=== PATIENT | male | born 1960 | race Caucasian/White ===

== ENCOUNTER 2017-01-01 20:25 | Emergency (ER) | payer OTHER ==
[~2017-01-01] VITALS: Ht 170.2 cm; Wt 73.5 kg
[2017-01-01 20:33] VITALS: Ht 170.2 cm; Wt 73.5 kg
[2017-01-01 21:26] LABS: ADD SCAN DIFF NO
[2017-01-01 21:27] LABS: BASOPHILS % 0.2 % (0.0-2.0); EOSINOPHILS # 0.5 10^3/ul (0.0-0.5); EOSINOPHILS % 5.1 % (0.0-7.0); HEMATOCRIT 40.1 % (42.0-52.0); HEMOGLOBIN 13.2 g/dl (14.0-18.0); LYMPHOCYTES # 3.4 10^3/ul (0.8-2.9); LYMPHOCYTES % 32.4 % (15.0-51.0); MEAN CORPUSCULAR HEMOGLOBIN 28.9 pg (29.0-33.0); MEAN CORPUSCULAR HGB CONC 32.9 g/dl (32.0-37.0); MEAN CORPUSCULAR VOLUME 87.7 fl (82.0-101.0); MEAN PLATELET VOLUME 9.5 fl (7.4-10.4); MONOCYTE # 0.8 10^3/ul (0.3-0.9); MONOCYTES % 7.6 % (0.0-11.0); NEUTROPHIL # 5.6 10^3/ul (1.6-7.5); NEUTROPHILS % 54.1 % (39.0-77.0); PLATELET COUNT 261 10^3/UL (140-415); RED BLOOD COUNT 4.57 10^6/ul (4.70-6.10); RED CELL DISTRIBUTION WIDTH 12.6 % (11.5-14.5); WHITE BLOOD COUNT 10.3 10^3/ul (4.8-10.8)
--- NOTE | 2017-01-01 21:54 | RADRPT ---
PROCEDURE: XR Lumbar Spine. CLINICAL INDICATION: Low back pain. TECHNIQUE: Portable supine AP and lateral views of the lumbar spine were obtained. COMPARISON: None. FINDINGS: Transitional anatomy at the lumbosacral junction is present. Hypoplastic ribs are seen at T12 [place] alization is within normal limits. Vertebral bodies are normal in height. No fracture is identifie d. Lumbar lordosis is preserved. No vertebral subluxation is seen. Mild disk narrowing is present at L3-4 and L4-5. Moderate to severe anterior spondylosis is present with left lateral spondylosis greatest at the L2-3 and right lateral spondylosis at L3-4. Paraspinal contours are unremarkable. Facet degeneration is present at L4-5 and L5-S1. RPTAT:HJJR IMPRESSION: 1. Multilevel moderate spondylosis of the lumbar spine asymmetric to the left at L2-3 and to the rig ht at L3-4 with disk space narrowing at L3-4 and L4-5. 2. Transitional lumbosacral anatomy. 3. Facet arthropathy greatest at L4-5 and L5-S1. Physician Eddie Date Time Electronically viewed and signed by Physician Eddie on 01/01/2017 21:53 /
--- NOTE | 2017-01-01 21:55 | RADRPT ---
PROCEDURE: XR Hand. CLINICAL INDICATION: Left hand pain TECHNIQUE: PA, oblique and lateral views of the left hand were obtained. COMPARISON: None available. FINDINGS: Mineralization is within normal limits. No fracture or osseous lesion is identified. Joint spaces are preserved. Soft tissue swelling is most pronounced involving the middle finger. No radiopaque f oreign body is present. RPTAT:HJJR IMPRESSION: Middle finger soft tissue swelling without evidence of acute osseous abnormality involving the left hand. Physician Eddie Date Time Electronically viewed and signed by Physician Eddie on 01/01/2017 21:54 /
[2017-01-01 21:56] LABS: ALBUMIN 4.9 g/dl (3.3-4.9); ALBUMIN/GLOBULIN RATIO 1.28; BILIRUBIN,INDIRECT 0.2 mg/dl (0-1.1); BILIRUBIN,TOTAL 0.2 mg/dl (0.2-1.3); CREATININE 0.98 mg/dl (0.61-1.24); TOTAL PROTEIN 8.7 g/dl (6.1-8.1); URIC ACID 10.9 mg/dl (3.1-7.9)
[2017-01-01 21:59] LABS: ADD UMIC YES; URINE BILIRUBIN (Dip) NEGATIVE (NEGATIVE); URINE BLOOD (Dip) TRACE (NEGATIVE); URINE COLOR LT. YELLOW (YELLOW); URINE GLUCOSE (Dip) NEGATIVE (NEGATIVE); URINE KETONES (Dip) NEGATIVE (NEGATIVE); URINE LEUKOCYTE ESTERASE (Dip) NEGATIVE (NEGATIVE); URINE NITRITE (Dip) NEGATIVE (NEGATIVE); URINE TOTAL PROTEIN (Dip) NEGATIVE (NEGATIVE); URINE UROBILINOGEN (Dip) 0.2 E.U./dL (0.1-1.0)
[2017-01-01 22:10] LABS: URINE RBCS 0-2 /HPF (0)
[2017-01-01] MEDS ORDERED: PRED20TA PO (23:13)
[2017-01-01 23:26] VITALS: BP 169/84; PULSE 66; RESP 20; TEMP 98.6
--- NOTE | 2017-01-01 23:27 | ERD ---
ER Documentation Chief Complaint Date/Time DATE: 01/01/17 TIME: 23:19 Chief Complaint back pain x 2 days; no trauma HPI This is a 56-year-old male presents to the ER with his family complaining of left hand swelling and pain that started on December 15. Patient has a past medical history of gout and believes is a gouty attack. He is currently taking Colchicine and Celebrex for his gout. Patient denies any fevers or chills. He denies any redness to the hand. He denies any trauma. Patient denies any numbness or tingling of his hand. Patient is also complaining of lower back pain. Lower back pain started 2 days ago after he lifted something heavy. He denies any urinary bowel incontinence. He denies any hematuria. Patient denies any saddle like anesthesia. He denies any leg numbness/ tingling, redness or swelling. ROS 12 point review of systems was done, all negative except per HPI. Medications Home Meds Active Scripts Prednisone* (Prednisone*) 20 Mg Tab, 40 MG PO DAILY for 5 Days, TAB Prov:AILEEN JOSE 01/01/17 Allergies Allergies: Coded Allergies: No Known Allergy (Unverified , 01/01/17) PMhx/Soc History of Surgery: No Anesthesia Reaction: No Hx Neurological Disorder: No Hx Respiratory Disorders: No Hx Cardiac Disorders: No Hx Psychiatric Problems: No Hx Miscellaneous Medical Probl: Yes (GOUT) Hx Alcohol Use: No Hx Substance Use: No Hx Tobacco Use: No Smoking Status: Never smoker Physical Exam Vitals Vital Signs Date Time Temp Pulse Resp B/P Pulse Ox O2 Delivery O2 Flow Rate FiO2 01/01/17 20:33 98.8 69 18 155/83 98 Physical Exam GENERAL: The patient is well developed and appropriate for usual state of health , in no apparent distress. NECK: C-spine is soft and supple. There is no cervical lymphadenopathy. CHEST: Clear to auscultation bilaterally. There are no rales, wheezes or rhonchi. HEART: Regular rate and rhythm. No murmurs, clicks, rubs or gallops. ABDOMEN: Soft, nontender and nondistended. BACK: No midline or flank tenderness. Tender to palpation from L3-L5. Tense paraspinal muscles. Negative leg raise test. No step- offs. EXTREMITIES: Left hand: There is swelling to the third digit, tender to palpation. Patient however has full range of motion of all his digits with no erythema. She denies intact to the radial ulnar nerves. NEURO: Alert and oriented. SKIN: The skin is warm and dry. Result Diagram: 01/01/17210401/01/172104 Results 24 hrs Laboratory Tests Test 01/01/17 21:05 01/01/17 21:30 White Blood Count 10.310^3/ul Red Blood Count 4.5710^6/ul Hemoglobin 13.2g/dl Hematocrit 40.1% Mean Corpuscular Volume 87.7fl Mean Corpuscular Hemoglobin 28.9pg Mean Corpuscular Hemoglobin Concent 32.9g/dl Red Cell Distribution Width 12.6% Platelet Count 76536^3/UL Mean Platelet Volume 9.5fl Neutrophils % 54.1% Lymphocytes % 32.4% Monocytes % 7.6% Eosinophils % 5.1% Basophils % 0.2% Nucleated Red Blood Cells % 0.0/100WBC Neutrophils # 5.610^3/ul Lymphocytes # 3.410^3/ul Monocytes # 0.810^3/ul Eosinophils # 0.510^3/ul Basophils # 0.010^3/ul Nucleated Red Blood Cells # 0.010^3/ul Erythrocyte Sedimentation Rate 30mm/Hr Sodium Level 140mmol/L Potassium Level 4.0mmol/L Chloride Level 107mmol/L Carbon Dioxide Level 23mmol/L Anion Gap 14 Blood Urea Nitrogen 17mg/dl Creatinine 0.98mg/dl Glucose Level 106mg/dl Uric Acid 10.9mg/dl Calcium Level 10.0mg/dl Total Bilirubin 0.2mg/dl Direct Bilirubin 0.00mg/dl Indirect Bilirubin 0.2mg/dl Aspartate Amino Transf (AST/SGOT) 25IU/L Alanine Aminotransferase (ALT/SGPT) 36IU/L Alkaline Phosphatase 72IU/L C-Reactive Protein Pending Total Protein 8.7g/dl Albumin 4.9g/dl Globulin 3.80g/dl Albumin/Globulin Ratio 1.28 Urine Color LT. YELLOW Urine Clarity CLEAR Urine pH 5.0 Urine Specific [place] 1.015 Urine Ketones NEGATIVE Urine Nitrite NEGATIVE Urine Bilirubin NEGATIVE Urine Urobilinogen 0.2 E.U./dL Urine Leukocyte Esterase NEGATIVE Urine Microscopic RBC 0-2/HPF Urine Microscopic WBC NONE SEEN/HPF Urine Hemoglobin TRACE Urine Glucose NEGATIVE% Urine Total Protein NEGATIVE Procedures/MDM Differential Diagnosis includes but is not limited to back strain, vertebral fracture, epidural abscess, cauda equina, herniated disc, AAA rupture, kidney stones, UTI, pyelonephritis. This is a 56-year-old male presents to the ER with back pain. This is likely a back strain. Patient did have something heavy 2 days ago. Patient is neurovascularly intact and has full range of motion of bilateral lower extremities. His patient for epidural abscess or cauda equina is low. Patient afebrile and extremely well appearing. In regards to patient's left and, his pain and swelling is likely due to gout. Patient's uric acid is elevated he has a long-standing history of gout. Patient is currently on the correct medication for gout. I instructed patient to continue with his medication added a short course of steroids. Suspicion for septic joint, septic arthritis, osteomyelitis is low. Patient needs to follow-up with his primary care doctor within 1-2 days return to ER sooner symptoms worsen. My medical decision-making pressure with patient he understands and agrees with plan. Departure Diagnosis: Primary Impression: Back pain Additional Impression: Gout Condition: Stable Patient Instructions: Treating Gout Attacks, Back Pain (Acute Or Chronic) Additional Instructions: Call your primary care doctor TOMORROW for an appointment during the next 1-2 days.See the doctor sooner or return here if your condition worsens before your appointment time. AILEEN JOSE Jan 01, 2017 23:27
[2017-01-02 02:02] LABS: C-REACTIVE PROTEIN 3.1 mg/dl (0.0-0.9)
== END 2017-01-01 23:27 | disposition home or self-care (01) ==
LOC: FTE 20:25
DX: M54.5 Low back pain (principal); M10.9 Gout, unspecified
CPT/HCPCS: 36415; 72100; 73130; 80053; 81001; 84560; 85025; 85651; 86140; Z7502

== ENCOUNTER 2017-12-16 13:16 | Emergency (ER) | END 2017-12-16 13:37 | disposition home or self-care (01) ==

== ENCOUNTER 2018-10-20 10:43 | Emergency (ER) | payer OTHER ==
[~2018-10-20] VITALS: Ht 172.7 cm; Wt 72.0 kg
[~2018-10-20 10:43] MED LIST: BEN25 PO; HDRP454O TOP; PRED20TA PO; TRIA15CR55 TOP
[2018-10-20 10:48] VITALS: Ht 172.7 cm; Wt 72.0 kg
[2018-10-20] MEDS ORDERED: KETOROLAC 30 MG INJ IM STA (11:58)
[2018-10-20] MEDS ORDERED: HYDROCODONE/APAP (5/325) TAB PO ONE (12:00)
[2018-10-20] MEDS ORDERED: TRAM50TA2 PO (12:37)
[2018-10-20] MEDS ORDERED: IBUP800T48 PO (12:37)
--- NOTE | 2018-10-20 12:41 | ERD ---
ER Documentation Chief Complaint Chief Complaint pt is bib family with c/o unable to raise left shoulder x 1 wk HPI 58-year-old male with history of gout is complaining of left shoulder pain. He has limited range of motion in shoulder. No injury or trauma. No fever. No numbness or tingling. No chest pain palpitations or shortness of breath. ROS All systems reviewed and are negative except as per history of present illness. Medications Home Meds Active Scripts Tramadol HCl (Tramadol HCl) 50 Mg Tablet, 50 MG PO Q4 PRN for PAIN, #20 TAB Prov:JW CLEMENS PA-C 10/20/18 Ibuprofen* (Motrin*) 800 Mg Tab, 800 MG PO Q6, #30 TAB Prov:JW CLEMENS PA-C 10/20/18 Hydrophilic Base* (Aquaphor*) 454 Gm-Topical Oint, 1 APPLIC TOP BID, #1 JAR Prov:CAMI PAINTER PA-C 12/16/17 Triamcinolone Acetonide (Triamcinolone Acetonide) 0.1% - 15 Gm Cream.gm., 1 APPLIC TOP BID, #1 TUB Prov:CAMI PAINTER PA-C 12/16/17 Diphenhydramine Hcl* (Benadryl*) 25 Mg Cap, 25 MG PO BID, #30 CAP Prov:CAMI PAINTER PA-C 12/16/17 Prednisone* (Prednisone*) 20 Mg Tab, 40 MG PO DAILY for 5 Days, TAB Prov:AILEEN JOSE 01/01/17 Allergies Allergies: Coded Allergies: No Known Allergy (Unverified , 01/01/17) PMhx/Soc Medical and Surgical Hx: pt denies Surgical Hx History of Surgery: No Anesthesia Reaction: No Hx Neurological Disorder: No Hx Respiratory Disorders: No Hx Cardiac Disorders: No Hx Psychiatric Problems: No Hx Miscellaneous Medical Probl: Yes (GOUT) Hx Alcohol Use: No Hx Substance Use: No Hx Tobacco Use: No Smoking Status: Never smoker FmHx Family History: No diabetes Physical Exam Vitals Vital Signs Date Temp Pulse Resp B/P (MAP) Pulse Ox O2 O2 Flow FiO2 Time Delivery Rate 10/20/18 99.0 63 16 114/59 97 10:48 (77) Physical Exam Const: No acute distress Head: Atraumatic Eyes: Normal Conjunctiva ENT: Normal External Ears, Nose and Mouth. Neck: Full range of motion. No meningismus. Resp: Clear to auscultation bilaterally Cardio: Regular rate and rhythm, no murmurs Upper Extremity -left Skin: [No laceration, or evidence of external trauma] Compartments: [Soft] Motor: Limited range of motion in left shoulder secondary to pain Sensation: [Intact shoulder/pinky/middle finger/thumb web space] Bones: [Nontender humerus/elbow/forearm/wrist/hand] Snuffbox: [Nontender] Joints: [No effusion] Pulses/Perfusion: [2+ radial, Capillary refill < 2 seconds] Results 24 hrs Current Medications Medications Dose Sig/Syeda Start Time Status Last (Trade) Ordered Route PRN Stop Time Admin Dose Reason Admin Ketorolac 30 mg ONCE STAT 10/20/18 DC 10/20/18 Tromethamine IM 11:58 12:08 (Toradol) 10/20/18 11:59 1 tab ONCE ONCE 10/20/18 DC 10/20/18 Acetaminophen PO 12:00 12:07 / 10/20/18 12:01 Hydrocodone Bitart ([place] (5/325)) Procedures/MDM Neurovascular intact. Shoulder x-ray shows moderate of degenerative changes. He was given a copy of the results we can follow with primary care. He was given Toradol and [place] with improvement and discharged with ibuprofen and [place]. Patient counseled regarding my diagnostic impression and care plan. Prior to discharge all questions answered. Pt agrees with treatment plan and understands strict return precautions. Pt is instructed to follow up with primary care provider within 24-48 hours. Precautionary instructions provided including instructions to return to the ER if not improving or for any worsening or changing symptoms or concerns. Departure Diagnosis: Primary Impression: Shoulder pain Condition: Stable Patient Instructions: Shoulder Pain (Uncertain Cause) Additional Instructions: Call your primary care doctor TOMORROW for an appointment during the next 1-2 days.See the doctor sooner or return here if your condition worsens before your appointment time. JW CLEMENS PA-C Oct 20, 2018 12:41
[2018-10-20 12:46] VITALS: BP 118/62; PULSE 77; RESP 18
== END 2018-10-20 12:46 | disposition home or self-care (01) ==
LOC: FTE 10:43
DX: M25.512 Pain in left shoulder (principal)
CPT/HCPCS: 73030; J1885; Z7610; 96372